=== PATIENT | female | born 1975 | race Caucasian/White ===

== ENCOUNTER 2020-12-22 09:58 | Inpatient (IN) | payer BC ==
[~2020-12-22] VITALS: Ht 152.4 cm; Wt 96.3 kg
[2020-12-22] MEDS ORDERED: HYDROmorphone 2 MG/ML, 1ML IVPush PRN (10:30)
[2020-12-22] MEDS ORDERED: PLEASE ENTER ALLERGIES MC SCH (10:30)
[2020-12-22] MEDS ORDERED: PLEASE ENTER HEIGHT AND WEIGHT MC SCH (10:30)
[2020-12-22] MEDS ORDERED: SODIUM CHLORIDE 0.9% 1,000ML IVBOLUS ONE (10:30)
[2020-12-22] MEDS ORDERED: HYDROmorphone 1 MG/ML, 1ML INJ ONE (10:42)
[2020-12-22 10:56] LABS: ALANINE AMINOTRANSFERASE 69 U/L (12-78); ALBUMIN 3.8 g/dL (3.4-5.0); ANION GAP 10 mmol/L (5-15); CALCIUM 8.9 mg/dL (8.5-10.1); CHLORIDE 109 mmol/L (98-107)
[2020-12-22 10:58] LABS: ALKALINE PHOSPHATASE 124 U/L (45-117); BILIRUBIN,TOTAL 0.5 mg/dL (0.2-1.0); TOTAL PROTEIN 7.4 g/dL (6.4-8.2)
[2020-12-22 11:00] LABS: D-DIMER (DIC) 0.34 ug/mlFEU (0.00-0.52); PROTIME 10.9 Seconds (9.6-11.5)
[2020-12-22 11:03] LABS: BASOPHILS % (AUTO) 0 % (0-1); EOSINOPHILS % (AUTO) 0 % (1-7); LYMPHOCYTES % (AUTO) 8 % (22-44); MEAN CORPUSCULAR HEMOGLOBIN 32.2 pg (27.0-34.8); MEAN CORPUSCULAR HGB CONC 33.8 g/dL (32.4-35.8); MEAN PLATELET VOLUME 8.4 fL (7.4-10.4); MONOCYTES % (AUTO) 4 % (2-9); NEUTROPHILS % (AUTO) 88 % (42-75); PLATELET COUNT 207 x10^3/uL (130-400); RED BLOOD COUNT 5.11 x10^6/uL (3.82-5.3); RED CELL DISTRIBUTION WIDTH 13.1 % (9.6-15.2)
[2020-12-22 11:04] LABS: MD NO
--- NOTE | 2020-12-22 11:25 | NUR ---
task RN: pt given emesis bag per request. no vomiting. pt resting on her side in position of comfort. bear hugger applied per request
[2020-12-22] MEDS ORDERED: CEFTRIAXONE PMX 1GM/50ML 50 ML ONE (12:23)
[2020-12-22] MEDS ORDERED: CEFTRIAXONE PMX 1GM/50ML 50 ML IVPB ONE (12:30)
[2020-12-22] MEDS ORDERED: AZITHROMYCIN 500 MG in SODIUM CHLORIDE 0.9% 250 ML IV ONE (12:30)
--- NOTE | 2020-12-22 13:59 | NUR ---
PT INCONTINET OF STOOL/URINE. COMPLETE BED CHANGE. ALL MONITOR IN PLACE.
[2020-12-22] MEDS ORDERED: OXYcodone IR 5MG TABLET PO PRN (15:00)
[2020-12-22] MEDS ORDERED: hydrALAzine 20 MG/ML, 1ML IVPush PRN (15:00)
[2020-12-22 15:15] LABS: C-REACTIVE PROTEIN, QUANT 7.3 mg/dL (0.02-0.49)
[2020-12-22] MEDS ORDERED: ENOXAPARIN 40 MG/0.4 ML ONE (16:17)
[2020-12-22] MEDS ORDERED: DEXAMETHASONE 4 MG/ML, 1ML ONE (16:17)
[2020-12-22] MEDS ORDERED: ASCORBIC ACID 500 MG TABLET ONE (16:17)
[2020-12-22] MEDS: ENOXAPARIN 40 MG/0.4 ML SQ SCH (16:29)
[2020-12-22] MEDS: DEXAMETHASONE 4 MG/ML, 1ML IVPush SCH (16:29)
[2020-12-22] MEDS ORDERED: ASCORBIC ACID 250 MG TAB PO SCH (17:00)
--- NOTE | 2020-12-22 17:26 | NUR ---
FOOD TRAY PROVIDED. PT HAS NO APPETITE. PT ASSISTED TO BSC THEN BTB.
[2020-12-22] MEDS ORDERED: ONDANSETRON 2MG/ML, 2ML ONE (18:40)
[2020-12-22] MEDS: ONDANSETRON 2MG/ML, 2ML IVPush PRN (18:41)
[2020-12-22 21:35] VITALS: BP 117/62
[2020-12-22 21:37] VITALS: BP 117/62
[2020-12-22] MEDS: ACETAMINOPHEN 325 MG TABLET PO PRN (22:10)
[2020-12-22] MEDS: KETOROLAC 30 MG/1 ML IV PRN (22:46)
[2020-12-23 00:55] VITALS: BP 91/59
[2020-12-23 04:55] LABS: BASOPHILS % (AUTO) 0 % (0-1); EOSINOPHILS % (AUTO) 0 % (1-7); LYMPHOCYTES % (AUTO) 24 % (22-44); MEAN CORPUSCULAR HEMOGLOBIN 32.4 pg (27.0-34.8); MEAN CORPUSCULAR HGB CONC 34.6 g/dL (32.4-35.8); MEAN PLATELET VOLUME 8.7 fL (7.4-10.4); MONOCYTES % (AUTO) 7 % (2-9); NEUTROPHILS % (AUTO) 69 % (42-75); PLATELET COUNT 199 x10^3/uL (130-400); RED BLOOD COUNT 4.94 x10^6/uL (3.82-5.3); RED CELL DISTRIBUTION WIDTH 13.3 % (9.6-15.2)
[2020-12-23 04:57] LABS: MD NO
[2020-12-23 05:07] LABS: ANION GAP 6 mmol/L (5-15); CALCIUM 8.7 mg/dL (8.5-10.1); CHLORIDE 108 mmol/L (98-107); CREATININE 0.63 mg/dL (0.55-1.02)
[2020-12-23] MEDS: CEFTRIAXONE PMX 1GM/50ML 50 ML IV SCH (08:38)
[2020-12-23] MEDS: THIAMINE 100MG TABLET PO SCH (08:38)
[2020-12-23] MEDS: ZINC SULFATE 220 MG CAPSULE PO SCH (08:38)
[2020-12-23] MEDS: ASCORBIC ACID 500 MG TABLET PO SCH ×2 (08:38→15:01)
[2020-12-23] MEDS: CHOLECALCIFEROL 5,000u TAB PO SCH (08:38)
[2020-12-23] MEDS: SENNA/DOCUSATE TABLET PO SCH (08:39)
[2020-12-23 08:51] VITALS: BP 126/84
[2020-12-23] MEDS: AZITHROMYCIN 500 MG in SODIUM CHLORIDE 0.9% 250 ML IV SCH (10:09)
[2020-12-23] MEDS: ACETAMINOPHEN 325 MG TABLET PO PRN ×3 (10:40→23:11)
[2020-12-23] MEDS: KETOROLAC 30 MG/1 ML IV PRN ×2 (11:16→20:45)
[2020-12-23 13:42] VITALS: BP 101/65
[2020-12-23] MEDS: ENOXAPARIN 40 MG/0.4 ML SQ SCH (15:00)
[2020-12-23] MEDS: DEXAMETHASONE 4 MG/ML, 1ML IVPush SCH (15:02)
[2020-12-23 19:44] VITALS: BP 132/78
[2020-12-24 01:04] VITALS: BP 135/82
[2020-12-24] MEDS: KETOROLAC 30 MG/1 ML IV PRN ×3 (02:55→17:32)
[2020-12-24] MEDS: ACETAMINOPHEN 325 MG TABLET PO PRN ×3 (02:55→17:31)
[2020-12-24 06:11] LABS: CHLORIDE 107 mmol/L (98-107)
[2020-12-24 06:16] LABS: ALANINE AMINOTRANSFERASE 47 U/L (12-78); ALBUMIN 3.3 g/dL (3.4-5.0); ALKALINE PHOSPHATASE 99 U/L (45-117); ANION GAP 10 mmol/L (5-15); BILIRUBIN,TOTAL 0.4 mg/dL (0.2-1.0); CALCIUM 8.7 mg/dL (8.5-10.1); CREATININE 0.63 mg/dL (0.55-1.02)
[2020-12-24] MEDS: ONDANSETRON 2MG/ML, 2ML IVPush PRN (08:25)
[2020-12-24] MEDS: THIAMINE 100MG TABLET PO SCH (08:25)
[2020-12-24] MEDS: ASCORBIC ACID 500 MG TABLET PO SCH ×2 (08:25→15:33)
[2020-12-24] MEDS: SENNA/DOCUSATE TABLET PO SCH (08:25)
[2020-12-24] MEDS: ZINC SULFATE 220 MG CAPSULE PO SCH (08:25)
[2020-12-24] MEDS: CHOLECALCIFEROL 5,000u TAB PO SCH (08:26)
[2020-12-24] MEDS: AZITHROMYCIN 500 MG in SODIUM CHLORIDE 0.9% 250 ML IV SCH (08:26)
[2020-12-24 08:43] VITALS: BP 153/94
[2020-12-24] MEDS: GABAPENTIN 300 MG CAPSULE PO PRN ×2 (10:36→17:31)
[2020-12-24] MEDS: CEFTRIAXONE PMX 1GM/50ML 50 ML IV SCH (10:37)
[2020-12-24] MEDS ORDERED: KETOROLAC 30 MG/1 ML ONE (10:38)
[2020-12-24 12:00] VITALS: BP 107/66
[2020-12-24] MEDS: SODIUM CHLORIDE 0.45% 1,000 ML IV SCH (12:00)
[2020-12-24] MEDS: ENOXAPARIN 40 MG/0.4 ML SQ SCH (15:33)
[2020-12-24] MEDS: DEXAMETHASONE 4 MG/ML, 1ML IVPush SCH (15:33)
[2020-12-24 18:42] VITALS: BP 123/76
[2020-12-25 00:36] VITALS: BP 111/76
[2020-12-25] MEDS: KETOROLAC 30 MG/1 ML IV PRN ×3 (01:06→20:14)
[2020-12-25] MEDS: ACETAMINOPHEN 325 MG TABLET PO PRN ×3 (01:06→20:13)
[2020-12-25] MEDS: SODIUM CHLORIDE 0.45% 1,000 ML IV SCH ×2 (01:07→14:33)
[2020-12-25] MEDS: GABAPENTIN 300 MG CAPSULE PO PRN ×2 (01:18→20:13)
[2020-12-25 05:27] LABS: ANION GAP 6 mmol/L (5-15); CALCIUM 8.3 mg/dL (8.5-10.1); CHLORIDE 109 mmol/L (98-107); CREATININE 0.65 mg/dL (0.55-1.02)
[2020-12-25 07:41] VITALS: BP 137/84
[2020-12-25] MEDS: CHOLECALCIFEROL 5,000u TAB PO SCH (08:14)
[2020-12-25] MEDS: ZINC SULFATE 220 MG CAPSULE PO SCH (08:14)
[2020-12-25] MEDS: ASCORBIC ACID 500 MG TABLET PO SCH ×2 (08:14→16:10)
[2020-12-25] MEDS: THIAMINE 100MG TABLET PO SCH (08:14)
[2020-12-25] MEDS: ENOXAPARIN 30 MG/0.3 ML SQ SCH ×2 (08:15→20:13)
[2020-12-25] MEDS: SENNA/DOCUSATE TABLET PO SCH (09:00)
[2020-12-25] MEDS: CEFTRIAXONE PMX 1GM/50ML 50 ML IV SCH (09:33)
[2020-12-25 12:47] VITALS: BP 129/82
[2020-12-25] MEDS: DEXAMETHASONE 4 MG/ML, 1ML IVPush SCH (14:33)
[2020-12-25 19:26] VITALS: BP 128/83
[2020-12-26 01:40] VITALS: BP 129/81
[2020-12-26] MEDS: SODIUM CHLORIDE 0.45% 1,000 ML IV SCH (04:00)
[2020-12-26 07:40] VITALS: BP 135/80
[2020-12-26] MEDS: THIAMINE 100MG TABLET PO SCH (07:46)
[2020-12-26] MEDS: ZINC SULFATE 220 MG CAPSULE PO SCH (07:46)
[2020-12-26] MEDS: CHOLECALCIFEROL 5,000u TAB PO SCH (07:46)
[2020-12-26] MEDS: ENOXAPARIN 30 MG/0.3 ML SQ SCH ×2 (07:46→19:38)
[2020-12-26] MEDS: ASCORBIC ACID 500 MG TABLET PO SCH ×2 (07:46→16:13)
[2020-12-26] MEDS: SENNA/DOCUSATE TABLET PO SCH (07:47)
[2020-12-26] MEDS: CEFTRIAXONE PMX 1GM/50ML 50 ML IV SCH (10:11)
[2020-12-26] MEDS: DEXAMETHASONE 4 MG/ML, 1ML IVPush SCH (16:13)
[2020-12-26 19:39] VITALS: BP 138/88
[2020-12-26 23:55] VITALS: BP 132/78
[2020-12-27 04:40] VITALS: BP 133/81
[2020-12-27 06:02] LABS: TROPONIN I < 0.015 ng/mL (0.000-0.045)
[2020-12-27 07:34] VITALS: BP 133/84
[2020-12-27] MEDS: THIAMINE 100MG TABLET PO SCH (07:45)
[2020-12-27] MEDS: ZINC SULFATE 220 MG CAPSULE PO SCH (07:45)
[2020-12-27] MEDS: ASCORBIC ACID 500 MG TABLET PO SCH (07:45)
[2020-12-27] MEDS: ENOXAPARIN 30 MG/0.3 ML SQ SCH (07:45)
[2020-12-27] MEDS: CHOLECALCIFEROL 5,000u TAB PO SCH (07:45)
[2020-12-27] MEDS: SENNA/DOCUSATE TABLET PO SCH (07:46)
[2020-12-27] MEDS ORDERED: ASCO500T9 PO (08:44)
[2020-12-27] MEDS ORDERED: CHOL500045 PO (08:44)
[2020-12-27] MEDS ORDERED: THIA100T67 PO (08:44)
[2020-12-27] MEDS ORDERED: ZINC220C7 PO (08:44)
[2020-12-27] MEDS ORDERED: DEXA6TAB6 PO (08:44)
[2020-12-27] MEDS: CEFTRIAXONE PMX 1GM/50ML 50 ML IV SCH (09:45)
== END 2020-12-27 11:07 | disposition home or self-care (01) | DRG 177 ==
LOC: ED 10:19 → EDIP 13:27 → 3N 20:50
PROVIDERS: ADMIT Internal Medicine; ATTEND Hospitalist
DX: U07.1 COVID-19 (principal); J12.82 Pneumonia due to coronavirus disease 2019; J96.01 Acute respiratory failure with hypoxia; E87.2 Acidosis; R74.01 Elevation of levels of liver transaminase levels
CPT/HCPCS: 36415; 71045; 80048; 80053; 82728; 83605; 83615; 83735; 84100; 84484; 85025; 85049; 85379; 85384; 85610; 85730; 86140; 87040; 93005; 96365; 96375; 99285; G0378; J0456; J0696; J1100; J1650; J1885; J2405; J7030; J7050